=== PATIENT | male | born 1945 | race Caucasian/White ===

== ENCOUNTER 2018-02-02 15:46 | Inpatient (IN) ==
[2018-02-02] MEDS ORDERED: Sod Chloride 0.9% Inj 1,000 ML IV.SIG ONE ×2 (16:54→21:03)
[2018-02-02 17:16] LABS: Baso % (Auto) 0.7 % (0.0-2.0); Eos % (Auto) 0.7 % (0.0-4.0); Hematocrit 38.4 % (39.0-51.0); Lymph # (Auto) 1.5 th/mm3 (1.0-4.8); Lymph % (Auto) 25.6 % (9.0-44.0); Mean Corpuscular HGB Conc 33.8 % (32.0-36.0); Mean Corpuscular Hemoglobin 29.1 pg (27.0-34.0); Mean Corpuscular Volume 86.1 fL (80.0-100.0); Mean Platelet Volume 12.2 fL (7.0-11.0); Mono # (Auto) 0.6 th/mm3 (0.0-0.9); Mono % (Auto) 10.7 % (0.0-8.0); Neut # (Auto) 3.8 th/mm3 (1.8-7.7); Neut % (Auto) 62.3 % (16.0-70.0); Platelet Count 150 th/mm3 (150-450); Red Blood Count 4.46 mil/mm3 (4.50-5.90); Red Cell Distribution Width 15.2 % (11.6-17.2)
[2018-02-02 17:23] LABS: Bacteria,Urine Occasional /hpf; Bilirubin,Urine Negative (Negative); Clarity,Urine Hazy (Clear); Color,Urine Yellow (Yellw/Straw); Glucose,Urine (UA) Negative (Negative); Leukocyte Esterase,Urine Negative (Negative); Mucus,Urine Few /lpf (Occasional); Nitrite,Urine Negative (Negative)
[2018-02-02 17:27] LABS: Activated Partial Thrombo Time 24.3 sec (24.3-30.1); INR 1.1 Ratio; Prothrombin Time 11.1 sec (9.8-11.6)
--- NOTE | 2018-02-02 17:29 | ED ---
HPI General Chief complaint: Recheck/Abnormal Lab/Rx Stated complaint: doc sent/abnl labs Time Seen by Provider: 02/02/18 16:45 Source: patient and RN notes reviewed Mode of arrival: ambulatory Limitations: no limitations History of Present Illness HPI narrative: 72-year-old male presents to the emergency department for evaluation of abnormal labs. Patient states he went to stay a new staff midwife today. He states that the staff midwife sent him for labs and a CT scan of his abdomen/pelvis. He states he was told his creatinine was elevated at 580 had some sort of blockage, but does not know what was blocked. Patient states he had this done at [facility]. It was done today. Patient denies any history of renal issues. He does have history of diabetes, elevated liver enzymes. He has an appointment with a chief telephone operator coming soon. His primary care physician is Dr. Mann. Patient states he has been having intermittent lower abdominal pain. He denies any pain this time. Moderate severity. Location: abdomen Radiation: non-radiation Severity: moderate Quality: aching Pain Consistency: intermittent Relieving factors: none Exacerbating factors: none Associated symptoms: other (Elevated creatinine) Treatments prior to arrival: other (Labs, CT abdomen/pelvis) Related Data Home Medications Medication Instructions Recorded Confirmed aspirin 81 mg PO DAILY 02/02/18 02/02/18 carvedilol [Coreg] 3.125 mg PO BID 02/02/18 02/02/18 metformin 1,000 mg PO BID 02/02/18 02/02/18 rosuvastatin [Crestor] 20 mg PO DAILY 02/02/18 02/02/18 Allergies Allergy/AdvReac Type Severity Reaction Status Date / Time fire ant Allergy Severe Cardiac Verified 02/02/18 19:38 Arrest levofloxacin Allergy Severe Hives Verified 02/02/18 19:38 polymyxin B Allergy Severe red and Verified 02/02/18 19:38 itchy eye trimethoprim Allergy Severe red and Verified 02/02/18 19:38 itchy eye Sulfa (Sulfonamide Allergy Intermediate Hives Verified 02/02/18 19:38 Antibiotics) Mucinex DM Allergy Severe Hives Uncoded 11/24/16 09:25 Review of Systems ROS: all other systems reviewed are negative [facility] Family History Family History Father Heart disease Mother Heart disease Social History Social History Substance History: No History of Abuse Second Hand Smoke Exposure: No Smoking Status: Former smoker Tobacco Type: Cigarettes How Often Do You Have a Drink Containing Alcohol: Never Recent Travel in [facility] within the Last 8 Weeks: No Recent Out of Country Travel within the Last 8 Weeks: No Immunization History Tetanus Immunization: <5 Years Exam Narrative Exam Narrative: GENERAL: Well-nourished, well-developed male patient, afebrile SKIN: Focused skin assessment warm/dry. HEAD: Normocephalic. Atraumatic EYES: Scleral icterus. No injection or drainage. NECK: Supple, trachea midline. No JVD or lymphadenopathy. CARDIOVASCULAR: Regular rate and rhythm without murmurs, gallops, or rubs. RESPIRATORY: Breath sounds equal bilaterally. No accessory muscle use. Lung sounds are clear to auscultation GASTROINTESTINAL: Abdomen soft, non-tender, nondistended. MUSCULOSKELETAL: No cyanosis, or edema. BACK: Nontender without obvious deformity. No CVA tenderness. Course Initial Documented Vital Signs Temperature 97.3 F L 02/02/18 15:52 Pulse Rate 60 02/02/18 15:52 Respiratory Rate 16 02/02/18 15:52 Blood Pressure 114/59 L 02/02/18 15:52 Pulse Oximetry 95 02/02/18 15:52 Last Documented Vital Signs Temperature 97.5 F L 02/03/18 08:00 Pulse Rate 53 L 02/03/18 09:00 Respiratory Rate 17 02/03/18 08:00 Blood Pressure 133/63 02/03/18 08:00 Pulse Oximetry 95 02/03/18 08:00 Medical Decision Making ELIZABETH Attestation ELIZABETH supervised visit: Yes Attestation: I, Dr. Crowley, have reviewed the advance practice practitioner's documentation and am in agreement, met with the patient face to face, made the diagnosis, and the medical decision making was done by me. *My assessment and Findings: Patient is resting comfortably on the stretcher reading a book on his pad. His sclera are anicteric. This patient presents to us because he was called by his staff midwife and told to come here because of an obstruction. He states that he had a CT done by his staff midwife in [place] today and that he was called and told that there was an obstruction in his pancreas or liver. He also reports that his creatinine is 5. His usual creatinine is about 1. Please see Magaly Worrell NP's note for a more detailed H&P, final diagnosis and disposition MDM Narrative Medical decision making narrative: 72-year-old male presents to the emergency department for evaluation of elevated creatinine, abnormality found on CT scan done at [facility] today. He does not have these results with him. I will attempt to obtain his results. If not, he understands CT will have to be repeated. CBC, CMP, lipase, PTT, PT/INR ordered and pending. Patient is given normal saline [address] abdomen/pelvis with PO contrast is ordered as records were not able to be retrieved from [facility]. CBC shows no acute abnormality. CMP shows BUN 64, creatinine 5.05, hyperglycemia 121, bilirubin 2.5, AST 205, ALT 511, alkaline phosphatase 895. Lipase is 711. PTT is 24.3. PT/INR is 11.1/1.1. CT abdomen/pelvis is Negative. Medical Screen Exam Complete: Yes Emergency Medical Condition: Yes Differential Diagnosis Differential Diagnosis: mass versus acute renal failure vs. electrolyte abnormality Medical Records Medical records reviewed: Yes I reviewed the patient's medical records. Lab Data Result diagrams: 02/03/18 06:49 02/03/18 06:49 Lab Results 02/02/18 02/02/18 02/02/18 Range/Units 17:02 17:02 17:02 WBC 6.0 (4.0-11.0) th/mm3 RBC 4.46 L (4.50-5.90) mil/mm3 Hgb 13.0 (13.0-17.0) gm/dL Hct 38.4 L (39.0-51.0) % MCV 86.1 (80.0-100.0) fL MCH 29.1 (27.0-34.0) pg MCHC 33.8 (32.0-36.0) % RDW 15.2 (11.6-17.2) % Plt Count 150 (150-450) th/mm3 MPV 12.2 H (7.0-11.0) fL Neut % (Auto) 62.3 (16.0-70.0) % Lymph % (Auto) 25.6 (9.0-44.0) % [place] % (Auto) 10.7 H (0.0-8.0) % Eos % (Auto) 0.7 (0.0-4.0) % Baso % (Auto) 0.7 (0.0-2.0) % Neut # (Auto) 3.8 (1.8-7.7) th/mm3 Lymph # (Auto) 1.5 (1.0-4.8) th/mm3 [place] # (Auto) 0.6 (0.0-0.9) th/mm3 Eos # (Auto) 0.0 (0.0-0.4) th/mm3 Baso # (Auto) 0.0 (0.0-0.2) th/mm3 WBC Differential . Differential Comment Auto diff final PT 11.1 (9.8-11.6) sec INR 1.1 Ratio APTT 24.3 (24.3-30.1) sec Sodium 135 L (136-145) meq/L Potassium 4.7 (3.5-5.1) meq/L Chloride 99 (98-107) meq/L Carbon Dioxide 22.8 (21.0-32.0) meq/L Anion Gap 13 (5-15) meq/L BUN 64 H (7-18) mg/dL Creatinine 5.05 H (0.60-1.30) mg/dL Estimated GFR 11 L (>89) mL/min POC Glucose (68-110) mg/dl Random Glucose 121 H (74-106) mg/dL Hemoglobin A1c (4.3-6.0) % Calcium 9.1 (8.5-10.1) mg/dL Total Bilirubin 2.5 H (0.2-1.0) mg/dL Direct Bilirubin (0.0-0.2) mg/dL Indirect Bilirubin (0.0-0.8) mg/dL AST 205 H (15-37) U/L ALT 511 H (12-78) U/L Alkaline Phosphatase 895 H (45-117) U/L Ammonia (11-32) mcmol/L Total Creatine Kinase (39-308) U/L Total Protein 7.0 (6.4-8.2) g/dL Albumin 3.3 L (3.4-5.0) g/dL Amylase (25-115) U/L Lipase 711 H (73-393) U/L TSH (0.358-3.740) uIU/mL Free T4 (0.76-1.46) ng/dL Urine Color (Yellw/Straw) Urine Clarity (Clear) Urine pH (5.0-8.5) Ur Specific [place] (1.002-1.035) Urine Protein (Neg-Trace) mg/dL Urine Glucose (UA) (Negative) mg/dL Urine Ketones (Negative) mg/dL Urine Occult Blood (Negative) Urine Nitrate (Negative) Urine Bilirubin (Negative) Urine Urobilinogen (Less than 2) mg/dL Ur Leukocyte Esterase (Negative) Urine RBC (0-3) /hpf Urine WBC (0-5) /hpf Urine Bacteria (None) /hpf Urine Mucus (Occasional) /lpf Micro UA Comment Ur Microscopic Review Urine Culture Comments 02/02/18 02/02/18 02/02/18 Range/Units 17:02 17:02 17:02 WBC (4.0-11.0) th/mm3 RBC (4.50-5.90) mil/mm3 Hgb (13.0-17.0) gm/dL Hct (39.0-51.0) % MCV (80.0-100.0) fL MCH (27.0-34.0) pg MCHC (32.0-36.0) % RDW (11.6-17.2) % Plt Count (150-450) th/mm3 MPV (7.0-11.0) fL Neut % (Auto) (16.0-70.0) % Lymph % (Auto) (9.0-44.0) % [place] % (Auto) (0.0-8.0) % Eos % (Auto) (0.0-4.0) % Baso % (Auto) (0.0-2.0) % Neut # (Auto) (1.8-7.7) th/mm3 Lymph # (Auto) (1.0-4.8) th/mm3 [place] # (Auto) (0.0-0.9) th/mm3 Eos # (Auto) (0.0-0.4) th/mm3 Baso # (Auto) (0.0-0.2) th/mm3 WBC Differential Differential Comment PT (9.8-11.6) sec INR Ratio APTT (24.3-30.1) sec Sodium (136-145) meq/L Potassium (3.5-5.1) meq/L Chloride (98-107) meq/L Carbon Dioxide (21.0-32.0) meq/L Anion Gap (5-15) meq/L BUN (7-18) mg/dL Creatinine (0.60-1.30) mg/dL Estimated GFR (>89) mL/min POC Glucose (68-110) mg/dl Random Glucose (74-106) mg/dL Hemoglobin A1c (4.3-6.0) % Calcium (8.5-10.1) mg/dL Total Bilirubin 2.5 H (0.2-1.0) mg/dL Direct Bilirubin 1.7 H (0.0-0.2) mg/dL Indirect Bilirubin 0.8 (0.0-0.8) mg/dL AST (15-37) U/L ALT (12-78) U/L Alkaline Phosphatase (45-117) U/L Ammonia (11-32) mcmol/L Total Creatine Kinase 39 (39-308) U/L Total Protein (6.4-8.2) g/dL Albumin (3.4-5.0) g/dL Amylase (25-115) U/L Lipase (73-393) U/L TSH (0.358-3.740) uIU/mL Free T4 (0.76-1.46) ng/dL Urine Color Yellow (Yellw/Straw) Urine Clarity Hazy H (Clear) Urine pH 5.0 (5.0-8.5) Ur Specific [place] 1.010 (1.002-1.035) Urine Protein Negative (Neg-Trace) mg/dL Urine Glucose (UA) Negative (Negative) mg/dL Urine Ketones Trace H (Negative) mg/dL Urine Occult Blood Negative (Negative) Urine Nitrate Negative (Negative) Urine Bilirubin Negative (Negative) Urine Urobilinogen 2.0 H (Less than 2) mg/dL Ur Leukocyte Esterase Negative (Negative) Urine RBC 1 (0-3) /hpf Urine WBC 2 (0-5) /hpf Urine Bacteria Occasional H (None) /hpf Urine Mucus Few H (Occasional) /lpf Micro UA Comment Culture not ind Ur Microscopic Review Not Reportable Urine Culture Comments Culture not ind 02/02/18 02/03/18 02/03/18 Range/Units 17:02 06:49 06:49 WBC 5.2 (4.0-11.0) th/mm3 RBC 3.91 L (4.50-5.90) mil/mm3 Hgb 11.2 L (13.0-17.0) gm/dL Hct 33.9 L (39.0-51.0) % MCV 86.7 (80.0-100.0) fL MCH 28.7 (27.0-34.0) pg MCHC 33.1 (32.0-36.0) % RDW 14.8 (11.6-17.2) % Plt Count 130 L (150-450) th/mm3 MPV 12.3 H (7.0-11.0) fL Neut % (Auto) 62.6 (16.0-70.0) % Lymph % (Auto) 23.9 (9.0-44.0) % [place] % (Auto) 12.0 H (0.0-8.0) % Eos % (Auto) 1.0 (0.0-4.0) % Baso % (Auto) 0.5 (0.0-2.0) % Neut # (Auto) 3.2 (1.8-7.7) th/mm3 Lymph # (Auto) 1.2 (1.0-4.8) th/mm3 [place] # (Auto) 0.6 (0.0-0.9) th/mm3 Eos # (Auto) 0.1 (0.0-0.4) th/mm3 Baso # (Auto) 0.0 (0.0-0.2) th/mm3 WBC Differential . Differential Comment Auto diff final PT (9.8-11.6) sec INR Ratio APTT (24.3-30.1) sec Sodium 137 (136-145) meq/L Potassium 4.3 (3.5-5.1) meq/L Chloride 106 (98-107) meq/L Carbon Dioxide 20.3 L (21.0-32.0) meq/L Anion Gap 11 (5-15) meq/L BUN 66 H (7-18) mg/dL Creatinine 4.79 H (0.60-1.30) mg/dL Estimated GFR 12 L (>89) mL/min POC Glucose (68-110) mg/dl Random Glucose 109 H (74-106) mg/dL Hemoglobin A1c 7.6 H (4.3-6.0) % Calcium 7.7 L D (8.5-10.1) mg/dL Total Bilirubin 3.1 H (0.2-1.0) mg/dL Direct Bilirubin (0.0-0.2) mg/dL Indirect Bilirubin (0.0-0.8) mg/dL AST 166 H (15-37) U/L ALT 381 H (12-78) U/L Alkaline Phosphatase 719 H (45-117) U/L Ammonia (11-32) mcmol/L Total Creatine Kinase (39-308) U/L Total Protein 5.7 L D (6.4-8.2) g/dL Albumin 2.7 L D (3.4-5.0) g/dL Amylase (25-115) U/L Lipase (73-393) U/L TSH (0.358-3.740) uIU/mL Free T4 (0.76-1.46) ng/dL Urine Color (Yellw/Straw) Urine Clarity (Clear) Urine pH (5.0-8.5) Ur Specific [place] (1.002-1.035) Urine Protein (Neg-Trace) mg/dL Urine Glucose (UA) (Negative) mg/dL Urine Ketones (Negative) mg/dL Urine Occult Blood (Negative) Urine Nitrate (Negative) Urine Bilirubin (Negative) Urine Urobilinogen (Less than 2) mg/dL Ur Leukocyte Esterase (Negative) Urine RBC (0-3) /hpf Urine WBC (0-5) /hpf Urine Bacteria (None) /hpf Urine Mucus (Occasional) /lpf Micro UA Comment Ur Microscopic Review Urine Culture Comments 02/03/18 02/03/18 02/03/18 Range/Units 06:49 06:49 08:22 WBC (4.0-11.0) th/mm3 RBC (4.50-5.90) mil/mm3 Hgb (13.0-17.0) gm/dL Hct (39.0-51.0) % MCV (80.0-100.0) fL MCH (27.0-34.0) pg MCHC (32.0-36.0) % RDW (11.6-17.2) % Plt Count (150-450) th/mm3 MPV (7.0-11.0) fL Neut % (Auto) (16.0-70.0) % Lymph % (Auto) (9.0-44.0) % [place] % (Auto) (0.0-8.0) % Eos % (Auto) (0.0-4.0) % Baso % (Auto) (0.0-2.0) % Neut # (Auto) (1.8-7.7) th/mm3 Lymph # (Auto) (1.0-4.8) th/mm3 [place] # (Auto) (0.0-0.9) th/mm3 Eos # (Auto) (0.0-0.4) th/mm3 Baso # (Auto) (0.0-0.2) th/mm3 WBC Differential Differential Comment PT (9.8-11.6) sec INR Ratio APTT (24.3-30.1) sec Sodium (136-145) meq/L Potassium (3.5-5.1) meq/L Chloride (98-107) meq/L Carbon Dioxide (21.0-32.0) meq/L Anion Gap (5-15) meq/L BUN (7-18) mg/dL Creatinine (0.60-1.30) mg/dL Estimated GFR (>89) mL/min POC Glucose 104 (68-110) mg/dl Random Glucose (74-106) mg/dL Hemoglobin A1c (4.3-6.0) % Calcium (8.5-10.1) mg/dL Total Bilirubin (0.2-1.0) mg/dL Direct Bilirubin (0.0-0.2) mg/dL Indirect Bilirubin (0.0-0.8) mg/dL AST (15-37) U/L ALT (12-78) U/L Alkaline Phosphatase (45-117) U/L Ammonia (11-32) mcmol/L Total Creatine Kinase (39-308) U/L Total Protein (6.4-8.2) g/dL Albumin (3.4-5.0) g/dL Amylase (25-115) U/L Lipase (73-393) U/L TSH 1.760 (0.358-3.740) uIU/mL Free T4 1.18 (0.76-1.46) ng/dL Urine Color (Yellw/Straw) Urine Clarity (Clear) Urine pH (5.0-8.5) Ur Specific [place] (1.002-1.035) Urine Protein (Neg-Trace) mg/dL Urine Glucose (UA) (Negative) mg/dL Urine Ketones (Negative) mg/dL Urine Occult Blood (Negative) Urine Nitrate (Negative) Urine Bilirubin (Negative) Urine Urobilinogen (Less than 2) mg/dL Ur Leukocyte Esterase (Negative) Urine RBC (0-3) /hpf Urine WBC (0-5) /hpf Urine Bacteria (None) /hpf Urine Mucus (Occasional) /lpf Micro UA Comment Ur Microscopic Review Urine Culture Comments 02/03/18 02/03/18 Range/Units 10:15 10:15 WBC (4.0-11.0) th/mm3 RBC (4.50-5.90) mil/mm3 Hgb (13.0-17.0) gm/dL Hct (39.0-51.0) % MCV (80.0-100.0) fL MCH (27.0-34.0) pg MCHC (32.0-36.0) % RDW (11.6-17.2) % Plt Count (150-450) th/mm3 MPV (7.0-11.0) fL Neut % (Auto) (16.0-70.0) % Lymph % (Auto) (9.0-44.0) % [place] % (Auto) (0.0-8.0) % Eos % (Auto) (0.0-4.0) % Baso % (Auto) (0.0-2.0) % Neut # (Auto) (1.8-7.7) th/mm3 Lymph # (Auto) (1.0-4.8) th/mm3 [place] # (Auto) (0.0-0.9) th/mm3 Eos # (Auto) (0.0-0.4) th/mm3 Baso # (Auto) (0.0-0.2) th/mm3 WBC Differential Differential Comment PT (9.8-11.6) sec INR Ratio APTT (24.3-30.1) sec Sodium (136-145) meq/L Potassium (3.5-5.1) meq/L Chloride (98-107) meq/L Carbon Dioxide (21.0-32.0) meq/L Anion Gap (5-15) meq/L BUN (7-18) mg/dL Creatinine (0.60-1.30) mg/dL Estimated GFR (>89) mL/min POC Glucose (68-110) mg/dl Random Glucose (74-106) mg/dL Hemoglobin A1c (4.3-6.0) % Calcium (8.5-10.1) mg/dL Total Bilirubin (0.2-1.0) mg/dL Direct Bilirubin (0.0-0.2) mg/dL Indirect Bilirubin (0.0-0.8) mg/dL AST (15-37) U/L ALT (12-78) U/L Alkaline Phosphatase (45-117) U/L Ammonia 21 (11-32) mcmol/L Total Creatine Kinase (39-308) U/L Total Protein (6.4-8.2) g/dL Albumin (3.4-5.0) g/dL Amylase 50 (25-115) U/L Lipase 532 H (73-393) U/L TSH (0.358-3.740) uIU/mL Free T4 (0.76-1.46) ng/dL Urine Color (Yellw/Straw) Urine Clarity (Clear) Urine pH (5.0-8.5) Ur Specific [place] (1.002-1.035) Urine Protein (Neg-Trace) mg/dL Urine Glucose (UA) (Negative) mg/dL Urine Ketones (Negative) mg/dL Urine Occult Blood (Negative) Urine Nitrate (Negative) Urine Bilirubin (Negative) Urine Urobilinogen (Less than 2) mg/dL Ur Leukocyte Esterase (Negative) Urine RBC (0-3) /hpf Urine WBC (0-5) /hpf Urine Bacteria (None) /hpf Urine Mucus (Occasional) /lpf Micro UA Comment Ur Microscopic Review Urine Culture Comments Imaging Data Radiologist's impression: Abdomen/Pelvis CT 02/02/18 17:36 CONCLUSION: 1. Negative noncontrast CT abdomen/pelvis. Discharge Plan Discharge Disposition Patient Disposition: 30 Still Patient Discharge Condition Condition: Fair Discharge Order Discharge Orders: AMA Discharge (Routine); Ordered 02/03/18 Ordered By: Andrey Ding Discharge Order (Routine); Ordered 02/03/18 Ordered By: Andrey Ding Discharge Details Anticipated Discharge Date: 02/03/18 Discharge Comment: LEFT AMA Physicians Team ED Provider: Leah Crowley ED Midlevel Provider: Magaly Worrell Primary Care Provider: Parul Mann Attending Provider: Andrey Ding Other Providers: Emeka Vo ; Paulino Schulte Status ED Status: Left Department Discharge Information Discharge Date/Time: 02/02/18 22:53
[2018-02-02 17:52] LABS: Alanine Aminotransferase 511 U/L (12-78); Albumin 3.3 g/dL (3.4-5.0); Anion Gap 13 meq/L (5-15); Aspartate Aminotransferase 205 U/L (15-37); Blood Urea Nitrogen 64 mg/dL (7-18); Calcium 9.1 mg/dL (8.5-10.1); Carbon Dioxide 22.8 meq/L (21.0-32.0); Chloride 99 meq/L (98-107); Glomerular Filtration Rate 11 mL/min (>89); Glucose,Random 121 mg/dL (74-106); Lipase 711 U/L (73-393); Potassium 4.7 meq/L (3.5-5.1); Sodium 135 meq/L (136-145)
[2018-02-02 17:55] LABS: Alkaline Phosphatase 895 U/L (45-117)
[2018-02-02] MEDS ORDERED: Diatrizoate Meglum/Diatrizoate Sod Liq 9 ML UDC ONE (18:38)
[2018-02-02] MEDS ORDERED: Carvedilol 6.25 MG Tablet PO ONE (18:48)
[2018-02-02] MEDS ORDERED: Diatrizoate Meglum/Diatrizoate Sod Liq 9 ML UDC PO ONE (19:04)
[2018-02-02] MEDS ORDERED: Diatrizoate Meglum/Diatrizoate Sod Liq 9 ML UDC PO SCH (19:15)
--- NOTE | 2018-02-02 21:00 | CT ---
EXAM DATE: 02/02/2018 5:41 PM EDT AGE/SEX: 72 years / Male INDICATIONS: Abdomen pain. CLINICAL DATA: This is the patient's initial encounter. Patient reports that signs and symptoms have been present for 1 day and indicates a pain score of 4/10. MEDICAL/SURGICAL HISTORY: None. None. RADIATION DOSE: 15.38 CTDI (mGy) COMPARISON: No prior exams available for comparison. TECHNIQUE: Multiple contiguous axial images were obtained through the abdomen. Images were obtained using multiple row detector helical technique. Using automated exposure control and adjustment of the mA and/or kV according to patient size, radiation dose was kept as low as reasonably achievable to o btain optimal diagnostic quality images. DICOM format image data is available electronically for rev iew and comparison. FINDINGS: Lower Lungs: The visualized lower lungs are clear. Liver: The liver has a homogeneous density without space-occupying lesion for noncontrast technique. There is no dilation of the biliary tree. No calcified gallstones. Spleen: Homogeneous density without enlargement. Pancreas: Unremarkable without mass or calcification. Kidneys: Normal in size and shape. No evidence of mass or hydronephrosis. No calcified stones in the collecting system or ureters. Adrenal Glands: Unremarkable. Aorta: The aorta and proximal iliac vessels are grossly unremarkable without aneurysmal dilation. Bowel/Mesentery: No dilated loops of small or large bowel. Oral contrast passes through to the rectu m. No evidence of free fluid.. Abdominal Wall: Intact. Retroperitoneum: No evidence of adenopathy in the retrocrural, para-aortic, or deep pelvic regions. Bladder: Contours are smooth. Reproductive Organs: No abnormal masses or calcifications seen. Inguinal: The inguinal region is unremarkable without evidence of adenopathy. Bony Structures: Unremarkable. CONCLUSION: 1. Negative noncontrast CT abdomen/pelvis. Electronically signed by: Teddy Hoang MD 02/02/2018 8:59 PM EDT
[2018-02-02] MEDS ORDERED: Bisacodyl 10 MG Supp RECTAL PRN (21:17)
[2018-02-02] MEDS ORDERED: Sod Chloride 0.9% Inj 1,000 ML IV.CONT SCH (21:30)
[2018-02-02] MEDS ORDERED: Dextrose 50% in Water 50 ML Vial IV.PUSH PRN (23:36)
--- NOTE | 2018-02-02 23:56 | P.HPIM ---
History of Present Illness Primary Care Physician: Parul Mann MD History of Present Illness: 72-year-old male with a history of CAD with history of stenting, diabetes starting on metformin started about 1 month ago, a one-month history of intentional 30 pound weight loss, together with crampy intermittent lower abdominal pain, nausea and decreased appetite. Patient went to see an author's agent injectable due to elevated LFTs, had labs and imaging performed today; patient was called by author's agent this afternoon to inform him that creatinine above 5.0 on labs drawn this am, as well as a GI mass found on imaging (patient recalls being told this was a pancreatic mass). Patient does note dark urine over the past few days. Denies any chest pain, shortness of breath. He has had low blood pressures with systolics in the 80s, and had his lisinopril discontinued on Wednesday. Inpatient Certification: I certify that the inpatient services were ordered in accordance with Medicare regulations governing the order. This includes certification that hospital inpatient services are reasonable and necessary and in the case of services not specified as inpatient-only under 42 CFR 419.22(n), that they are appropriately provided as inpatient services in accordance to with the 2-midnight benchmark under 43 CFR 412.3(e) Estimated Total Length of Stay (Days): 2 Plans for Post Hospital Care: Home Review of Systems All other systems reviewed negative except as stated in HPI PMFSH - History History Provided By: Patient - Medical History Medical History: Medical History (Last Reviewed 02/02/18 @ 23:33 by Angie Duke RN) Diabetes Elevated liver enzymes Glaucoma Myocardial infarct - Surgical History Surgical History: Surgical History (Last Reviewed 02/02/18 @ 23:33 by Angie Duke RN) H/O arthroscopy of left knee H/O right knee surgery History of heart artery stent - Family History Family History: Family History (Last Updated 02/02/18 @ 23:57 by Carlos Garland MD) Father Heart disease Mother Heart disease - Tobacco History Tobacco Use In Past 30 Days: No Smoking Status: Former smoker Tobacco Type: Cigarettes - Alcohol History How Often Do You Have a Drink Containing Alcohol: Never - Travel History Recent Travel in the [place] Within the Last 8 Weeks: No Recent Travel Out of the Country Within the Last 8 Weeks: No - Immunization History Tetanus Immunization: <5 Years Medications and Allergies Active Medications: Active Medications Al Hydroxide/Mg Hydroxide (Milk Of Magnesia Liq) 30 ml PO Q12H PRN PRN Reason: Mild Constipation Aspirin (Aspirin Chew) 81 mg PO DAILY TRE Bisacodyl (Dulcolax Supp) 10 mg RECTAL DAILY PRN PRN Reason: SEVERE CONSITIPATION Carvedilol (Coreg) 6.25 mg PO BID TRE Dextrose (D50w Vial) 50 ml IV.PUSH UNSCH PRN PRN Reason: PER HYPOGLYCEMIA PROTOCOL Diatrizoate Meglum/Diatrizoate Sod ( Gastroview Liq) 18 ml PO ONCE TRE Glucagon (Glucagon Inj) 1 mg OTHER PRN PRN PRN Reason: for Hypoglycemia Protocol Sodium Chloride (Ns Inj) 1,000 mls @ 100 mls/hr IV.CONT .Q10H TRE Insulin Aspart (Novolog Insulin Correctional Sugar Inj) 0 unit SQ ACHS TRE; Protocol Lactulose (Lactulose Liq) 30 ml PO DAILY PRN PRN Reason: SEVERE CONSITIPATION Sennosides (Senokot) 17.2 mg PO Q12H PRN PRN Reason: Moderate Constipation Sodium Chloride (Ns Flush) 2 ml IV.FLUSH PRN PRN PRN Reason: FLUSH AFTER USING IV ACCESS Allergies Allergy/AdvReac Type Severity Reaction Status Date / Time fire ant Allergy Severe Cardiac Verified 02/02/18 19:38 Arrest levofloxacin Allergy Severe Hives Verified 02/02/18 19:38 polymyxin B Allergy Severe red and Verified 02/02/18 19:38 itchy eye trimethoprim Allergy Severe red and Verified 02/02/18 19:38 itchy eye Sulfa (Sulfonamide Allergy Intermediate Hives Verified 02/02/18 19:38 Antibiotics) Mucinex DM Allergy Severe Hives Uncoded 11/24/16 09:25 Home Medications Medication Instructions Recorded Confirmed Type aspirin 81 mg PO DAILY 02/02/18 02/02/18 History carvedilol [Coreg] 6.25 mg PO BID 02/02/18 02/02/18 History metformin 1,000 mg PO BID 02/02/18 02/02/18 History rosuvastatin [Crestor] 20 mg PO DAILY 02/02/18 02/02/18 History Exam Vital signs: Vital Signs 02/02/18 15:52 02/02/18 17:21 02/02/18 20:26 Temperature 97.3 F L Pulse Rate 60 64 78 Respiratory Rate 16 18 Blood Pressure 114/59 L 151/70 H Pulse Oximetry 95 98 Intake & Output 02/02/18 02/02/18 02/03/18 06:59 18:59 06:59 Intake Total 1000 / 1000 Balance 1000 / 1000 Weight 89.811 kg Intake: IV 1000 / 1000 NS Inj 1,000 ML @ Wide Open IV. 1000 / 1000 SIG BOLUS ONE Rx#:[id number] Narrative: GENERAL: Patient sitting up in bed. Appears comfortable. Alert and oriented x3. SKIN: Warm and dry. HEAD: Atraumatic. Normocephalic. EYES: Pupils equal and round. No scleral icterus. No injection or drainage. ENT: No nasal bleeding or discharge. Mucous membranes pink and moist. NECK: Trachea midline. No JVD. CARDIOVASCULAR: Regular rate and rhythm. RESPIRATORY: No accessory muscle use. Clear to auscultation. Breath sounds equal bilaterally. GASTROINTESTINAL: Abdomen soft, non-tender, nondistended. Hepatic and splenic margins not palpable. MUSCULOSKELETAL: Extremities without clubbing, cyanosis, or edema. No obvious deformities. NEUROLOGICAL: Awake and alert. No obvious cranial nerve deficits. Motor grossly within normal limits. Five out of 5 muscle strength in the arms and legs. Normal speech. PSYCHIATRIC: Appropriate mood and affect; insight and judgment normal. Results - Labs CBC & Chem 7: 02/02/18 17:02 02/02/18 17:02 Labs: Short CBC 02/02/18 Range/Units 17:02 WBC 6.0 (4.0-11.0) th/mm3 Hgb 13.0 (13.0-17.0) gm/dL Hct 38.4 L (39.0-51.0) % Plt Count 150 (150-450) th/mm3 [facility] 02/02/18 17:02 Sodium 135 L Potassium 4.7 Chloride 99 Carbon Dioxide 22.8 BUN 64 H Creatinine 5.05 H Calcium 9.1 Cardiac Enzymes 02/02/18 Range/Units 17:02 Total Creatine Kinase 39 (39-308) U/L Liver Function 02/02/18 Range/Units 17:02 Total Bilirubin 2.5 H (0.2-1.0) mg/dL AST 205 H (15-37) U/L ALT 511 H (12-78) U/L Alkaline Phosphatase 895 H (45-117) U/L Albumin 3.3 L (3.4-5.0) g/dL Urine 02/02/18 Range/Units 17:02 Urine Color Yellow (Yellw/Straw) Urine Clarity Hazy H (Clear) Urine pH 5.0 (5.0-8.5) Ur Specific Lynn 1.010 (1.002-1.035) Urine Protein Negative (Neg-Trace) mg/dL Urine Glucose (UA) Negative (Negative) mg/dL - Imaging Impressions Abdomen/Pelvis CT 02/02/18 17:36 CONCLUSION: 1. Negative noncontrast CT abdomen/pelvis. Caprini VTE Risk Assessment Caprini VTE Risk Assessment: Moderate/High Risk (score >= 2) Caprini Risk Assessment Model: Point Value = 1 Point Value = 2 Point Value = 3 Point Value = 5 Age 41-60 Minor surgery BMI > 25 kg/m2 Swollen legs Varicose veins or History of unexplained or recurrent spontaneous Oral contraceptives or hormone replacement Sepsis (< 1 month) Serious lung disease, including pneumonia (< 1 month) Abnormal pulmonary function Acute myocardial infarction Congestive heart failure (< 1 month) History of inflammatory bowel disease Medical patient at bed rest Age 61-74 Arthroscopic surgery Major open surgery (> 45 min) Laparoscopic surgery (> 45 min) Malignancy Confined to bed (> 72 hours) Immobilizing plaster cast Central venous access Age >= 75 History of VTE Family history of VTE Factor V Leiden Prothrombin [id number] Lupus anticoagulant Anticardiolipin antibodies Elevated serum homocysteine Heparin-induced thrombocytopenia Other congenital or acquired thrombophilia Stroke (< 1 month) Elective arthroplasty Hip, pelvis, or leg fracture Acute spinal cord injury (< 1 month) Prophylaxis Regimen: Total Risk Factor Score Risk Level Prophylaxis Regimen 0-1 Low Early ambulation 2 Moderate Order ONE of the following: *Sequential Compression Device (SCD) *Heparin 5000 units SQ BID 3-4 Higher Order ONE of the following medications: *Heparin 5000 units SQ TID *Enoxaparin/Lovenox 40 mg SQ daily (WT < 150 kg, CrCl > 30 mL/min) *Enoxaparin/Lovenox 30 mg SQ daily (WT < 150 kg, CrCl > 10-29 mL/min) *Enoxaparin/Lovenox 30 mg SQ BID (WT < 150 kg, CrCl > 30 mL/min) AND/OR *Sequential Compression Device (SCD) 5 or more Highest Order ONE of the following medications: *Heparin 5000 units SQ TID (Preferred with Epidurals) *Enoxaparin/Lovenox 40 mg SQ daily (WT < 150 kg, CrCl > 30 mL/min) *Enoxaparin/Lovenox 30 mg SQ daily (WT < 150 kg, CrCl > 10-29 mL/min) *Enoxaparin/Lovenox 30 mg SQ BID (WT < 150 kg, CrCl > 30 mL/min) AND *Sequential Compression Device (SCD) Assessment and Plan - Plan //Kidney injury creatinine of 5 from presumably normal baseline Likely secondary to significant dietary changes in conjunction with starting metformin, as well as being on lisinopril We will hold lisinopril. Hold metformin Aggressive IV fluid replacement. No signs of obstruction on CT Consult nephrology. Follow-up renal function //Suspected GI malignancy/mass //Transaminitis //Hyperbilirubinemia. = CT abdomen with no acute findings. Lipase elevated 711, however does not appear to be acute pancreatitis. Unfortunately we have been unable to get outside records. It sounds as if patient had an MRI. We will try in the morning. Appreciate nursing home administrator GI has been consulted. //Diabetes mellitus.dm diet. iss. = There is a possibility that patient has a pancreatic malignancy causing a type I diabetic picture. Only trace ketones in urine and no gap however. Will follow labs. //History of hypertension //History of coronary artery disease Continue beta-sindhu Discussed Condition With: Patient, nurse, ED physician, at bedside
[2018-02-03] MEDS ORDERED: HYDROmorphone PF Inj 0.5 MG/0.5 ML Syringe IV.PUSH ONE (03:41)
[2018-02-03] MEDS ORDERED: HYDROmorphone PF Inj 2 MG/ML Vial IV.PUSH ONE (03:45)
[2018-02-03 07:07] LABS: Baso % (Auto) 0.5 % (0.0-2.0); Eos # (Auto) 0.1 th/mm3 (0.0-0.4); Hematocrit 33.9 % (39.0-51.0); Hemoglobin 11.2 gm/dL (13.0-17.0); Lymph # (Auto) 1.2 th/mm3 (1.0-4.8); Lymph % (Auto) 23.9 % (9.0-44.0); Mean Corpuscular HGB Conc 33.1 % (32.0-36.0); Mean Corpuscular Hemoglobin 28.7 pg (27.0-34.0); Mean Corpuscular Volume 86.7 fL (80.0-100.0); Mean Platelet Volume 12.3 fL (7.0-11.0); Mono # (Auto) 0.6 th/mm3 (0.0-0.9); Neut # (Auto) 3.2 th/mm3 (1.8-7.7); Neut % (Auto) 62.6 % (16.0-70.0); Platelet Count 130 th/mm3 (150-450); Red Blood Count 3.91 mil/mm3 (4.50-5.90); Red Cell Distribution Width 14.8 % (11.6-17.2); White Blood Count 5.2 th/mm3 (4.0-11.0)
[2018-02-03 07:35] LABS: Albumin 2.7 g/dL (3.4-5.0); Anion Gap 11 meq/L (5-15); Blood Urea Nitrogen 66 mg/dL (7-18); Calcium 7.7 mg/dL (8.5-10.1); Carbon Dioxide 20.3 meq/L (21.0-32.0); Chloride 106 meq/L (98-107); Glomerular Filtration Rate 12 mL/min (>89); Glucose,Random 109 mg/dL (74-106); Potassium 4.3 meq/L (3.5-5.1); Sodium 137 meq/L (136-145)
[2018-02-03 07:36] LABS: Alanine Aminotransferase 381 U/L (12-78); Aspartate Aminotransferase 166 U/L (15-37)
[2018-02-03 07:39] LABS: Alkaline Phosphatase 719 U/L (45-117); Total Protein 5.7 g/dL (6.4-8.2)
[2018-02-03] MEDS ORDERED: Insulin NovoLOG Aspart Correctional Sugar Inj SQ SCH (08:00)
[2018-02-03 08:29] VITALS: BP 133/63; RESP 17; TEMP 97.5; O2SAT 95
[2018-02-03] MEDS ORDERED: Carvedilol 6.25 MG Tablet PO SCH (09:00)
--- NOTE | 2018-02-03 10:26 | P.CONGI ---
History of Present Illness Consult date: 02/03/18 Consult reason: CT findings, elevated LFTs Chief complaint: Acute Renal Failure History of Present Illness: This is a 72 yo M with PMH significant for recent diagnosis of DM that he is currently being followed by an expediter service order at [facility] in [place]. Pt reports he had routine labs done yesterday and on his way home from [place] was called by the office and told that he had to go to the hospital because his labs revealed a Creatinine of 5. Our service has been consulted to evaluate pt for elevated LFTs and outpatient CT findings. Pt is complaining of some intermittent nausea that he states has been present since being started on Metformin but that it has been improving recently. Also states some diarrhea yesterday but overall having normal BMs. Denies any abdominal pain. He reports that he has been losing weight unintentionally for about a year but that since November the weight loss has significantly increased. He reports a poor appetite. Pts GI Dr. is Dr. Melton. Last EGD and colonoscopy about 10 years ago and states both exams were normal. Did do a recent Cologuard test which was negative. Pt quit drinking alcohol in December, states prior to that was only a social drinker. Quit smoking in 1981. Denies any family history significant for cancer. <Madeline Chavez - Last Filed: 02/03/18 10:07> Review of Systems Constitutional: Reports weight loss Gastrointestinal: Reports loose stools, Reports nausea, Denies abdominal pain, Denies black, tarry stools, Denies bright, red blood in stools, Denies vomiting <Madeline Chavez - Last Filed: 02/03/18 10:07> [facility] - History History Provided By: Patient - Medical History Medical History: Medical History (Last Reviewed 02/02/18 @ 23:33 by Angie Duke RN) Diabetes Elevated liver enzymes Glaucoma Myocardial infarct - Surgical History Surgical History: Surgical History (Last Reviewed 02/02/18 @ 23:33 by Angie Duke RN) H/O arthroscopy of left knee H/O right knee surgery History of heart artery stent - Family History Family History: Family History (Last Updated 02/02/18 @ 23:57 by Carlos Garland MD) Father Heart disease Mother Heart disease - Tobacco History Second Hand Smoke Exposure: No Tobacco Use In Past 30 Days: No Smoking Status: Former smoker Tobacco Type: Cigarettes - Alcohol History How Often Do You Have a Drink Containing Alcohol: Never - Substance Use History Substance History: No History of Abuse - Travel History Recent Travel in the [place] Within the Last 8 Weeks: No Recent Travel Out of the Country Within the Last 8 Weeks: No - Immunization History Tetanus Immunization: <5 Years Hx Influenza Vaccine This Season: Yes <Madeline Chavez - Last Filed: 02/03/18 10:07> - Medical History Medical History: Medical History (Last Reviewed 02/02/18 @ 23:33 by Angie Duke, LIVAN) Diabetes Elevated liver enzymes Glaucoma Myocardial infarct - Surgical History Surgical History: Surgical History (Last Reviewed 02/02/18 @ 23:33 by Angie Duke RN) H/O arthroscopy of left knee H/O right knee surgery History of heart artery stent - Family History Family History: Family History (Last Updated 02/02/18 @ 23:57 by Carlos Garland MD) Father Heart disease Mother Heart disease <Paulino Schulte - Last Filed: 02/03/18 15:15> Medications and Allergies Active Medications: Active Medications Al Hydroxide/Mg Hydroxide (Milk Of Magnesia Liq) 30 ml PO Q12H PRN PRN Reason: Mild Constipation Aspirin (Aspirin Chew) 81 mg PO DAILY [facility] Last Admin: 02/03/18 08:14 Dose: 81 mg Bisacodyl (Dulcolax Supp) 10 mg RECTAL DAILY PRN PRN Reason: SEVERE CONSITIPATION Carvedilol (Coreg) 6.25 mg PO BID [facility] Last Admin: 02/03/18 08:15 Dose: 6.25 mg Dextrose (D50w Vial) 50 ml IV.PUSH UNSCH PRN PRN Reason: PER HYPOGLYCEMIA PROTOCOL Diatrizoate Meglum/Diatrizoate Sod ( Gastroview Liq) 18 ml PO ONCE TRE Glucagon (Glucagon Inj) 1 mg OTHER PRN PRN PRN Reason: for Hypoglycemia Protocol Sodium Chloride (Ns Inj) 1,000 mls @ 100 mls/hr IV.CONT .Q10H [facility] Last Admin: 02/02/18 23:52 Dose: 100 mls/hr Insulin Aspart (Novolog Insulin Correctional Sugar Inj) 0 unit SQ ACHS TRE; Protocol Last Admin: 02/03/18 09:44 Dose: Not Given Lactulose (Lactulose Liq) 30 ml PO DAILY PRN PRN Reason: SEVERE CONSITIPATION Sennosides (Senokot) 17.2 mg PO Q12H PRN PRN Reason: Moderate Constipation Sodium Chloride (Ns Flush) 2 ml IV.FLUSH PRN PRN PRN Reason: FLUSH AFTER USING IV ACCESS <Madeline Chavez - Last Filed: 02/03/18 10:07> Active Medications: Active Medications Al Hydroxide/Mg Hydroxide (Milk Of Magnesia Liq) 30 ml PO Q12H PRN PRN Reason: Mild Constipation Aspirin (Aspirin Chew) 81 mg PO DAILY [facility] Last Admin: 02/03/18 08:14 Dose: 81 mg Bisacodyl (Dulcolax Supp) 10 mg RECTAL DAILY PRN PRN Reason: SEVERE CONSITIPATION Carvedilol (Coreg) 6.25 mg PO BID [facility] Last Admin: 02/03/18 08:15 Dose: 6.25 mg Dextrose (D50w Vial) 50 ml IV.PUSH UNSCH PRN PRN Reason: PER HYPOGLYCEMIA PROTOCOL Diatrizoate Meglum/Diatrizoate Sod ( Gastroview Liq) 18 ml PO ONCE TRE Glucagon (Glucagon Inj) 1 mg OTHER PRN PRN PRN Reason: for Hypoglycemia Protocol Sodium Chloride (Ns Inj) 1,000 mls @ 100 mls/hr IV.CONT .Q10H [facility] Last Admin: 02/02/18 23:52 Dose: 100 mls/hr Insulin Aspart (Novolog Insulin Correctional Sugar Inj) 0 unit SQ ACHS [facility]; Protocol Last Admin: 02/03/18 09:44 Dose: Not Given Lactulose (Lactulose Liq) 30 ml PO DAILY PRN PRN Reason: SEVERE CONSITIPATION Sennosides (Senokot) 17.2 mg PO Q12H PRN PRN Reason: Moderate Constipation Sodium Chloride (Ns Flush) 2 ml IV.FLUSH PRN PRN PRN Reason: FLUSH AFTER USING IV ACCESS <Paulino Schulte - Last Filed: 02/03/18 15:15> Allergies Allergy/AdvReac Type Severity Reaction Status Date / Time fire ant Allergy Severe Cardiac Verified 02/02/18 19:38 Arrest levofloxacin Allergy Severe Hives Verified 02/02/18 19:38 polymyxin B Allergy Severe red and Verified 02/02/18 19:38 itchy eye trimethoprim Allergy Severe red and Verified 02/02/18 19:38 itchy eye Sulfa (Sulfonamide Allergy Intermediate Hives Verified 02/02/18 19:38 Antibiotics) Mucinex DM Allergy Severe Hives Uncoded 11/24/16 09:25 Home Medications Medication Instructions Recorded Confirmed Type aspirin 81 mg PO DAILY 02/02/18 02/02/18 History carvedilol [Coreg] 3.125 mg PO BID 02/02/18 02/02/18 History metformin 1,000 mg PO BID 02/02/18 02/02/18 History rosuvastatin [Crestor] 20 mg PO DAILY 02/02/18 02/02/18 History Exam Vital signs: Vital Signs 02/02/18 15:52 02/02/18 17:21 02/02/18 20:26 Temperature 97.3 F L Pulse Rate 60 64 78 Respiratory Rate 16 18 Blood Pressure 114/59 L 151/70 H Pulse Oximetry 95 98 02/03/18 00:00 02/03/18 00:07 02/03/18 03:46 Temperature 98.0 F Pulse Rate 48 L 57 L 52 L Respiratory Rate 18 Blood Pressure 122/61 Pulse Oximetry 98 02/03/18 04:00 02/03/18 08:00 Temperature 98.0 F 97.5 F L Pulse Rate 68 56 L Respiratory Rate 18 17 Blood Pressure 99/54 L 133/63 Pulse Oximetry 96 95 Intake & Output 02/02/18 02/03/18 02/03/18 18:59 06:59 18:59 Intake Total 1000 / 1000 1000 / 1000 Balance 1000 / 1000 1000 / 1000 Weight 89.811 kg 89.6 kg Intake: IV 1000 / 1000 1000 / 1000 NS Inj 1,000 ML @ Wide Open IV. 1000 / 1000 1000 / 1000 SIG BOLUS ONE Rx#:[id number] Other: Date of Last Bowel Movement 02/02/18 Weight On Admission 89.8 kg - Constitutional no acute distress - Routine HEENT Exam Head: Present: normocephalic, atraumatic - Routine Respiratory Exam Absent: accessory muscle use - Routine Abdominal Exam Present: soft, normoactive bowel sounds. Absent: tenderness, distended - Routine Skin Exam Present: dry, warm - Routine Neurological Exam Present: alert, oriented X3 <Madeline Chavez - Last Filed: 02/03/18 10:07> Vital signs: Vital Signs 02/02/18 15:52 02/02/18 17:21 02/02/18 20:26 Temperature 97.3 F L Pulse Rate 60 64 78 Respiratory Rate 16 18 Blood Pressure 114/59 L 151/70 H Pulse Oximetry 95 98 02/03/18 00:00 02/03/18 00:07 02/03/18 03:46 Temperature 98.0 F Pulse Rate 48 L 57 L 52 L Respiratory Rate 18 Blood Pressure 122/61 Pulse Oximetry 98 02/03/18 04:00 02/03/18 08:00 02/03/18 09:00 Temperature 98.0 F 97.5 F L Pulse Rate 68 56 L 53 L Respiratory Rate 18 17 Blood Pressure 99/54 L 133/63 Pulse Oximetry 96 95 Intake & Output 02/02/18 02/03/18 02/03/18 18:59 06:59 18:59 Intake Total 1000 / 1000 1000 / 1000 Balance 1000 / 1000 1000 / 1000 Weight 89.811 kg 89.6 kg Intake: IV 1000 / 1000 1000 / 1000 NS Inj 1,000 ML @ Wide Open IV. 1000 / 1000 1000 / 1000 SIG BOLUS ONE Rx#:[id number] Other: Date of Last Bowel Movement 02/02/18 Weight On Admission 89.8 kg <Paulino Schulte - Last Filed: 02/03/18 15:15> Results - Labs CBC & Chem 7: 02/03/18 06:49 02/03/18 06:49 Labs: Laboratory Results - last 24 hr 02/02/18 02/02/18 02/02/18 17:02 17:02 17:02 WBC 6.0 RBC 4.46 L Hgb 13.0 Hct 38.4 L MCV 86.1 MCH 29.1 MCHC 33.8 RDW 15.2 Plt Count 150 MPV 12.2 H Neut % (Auto) 62.3 Lymph % (Auto) 25.6 [place] % (Auto) 10.7 H Eos % (Auto) 0.7 Baso % (Auto) 0.7 Neut # (Auto) 3.8 Lymph # (Auto) 1.5 [place] # (Auto) 0.6 Eos # (Auto) 0.0 Baso # (Auto) 0.0 WBC Differential . Differential Comment Auto diff final PT 11.1 INR 1.1 APTT 24.3 Sodium 135 L Potassium 4.7 Chloride 99 Carbon Dioxide 22.8 Anion Gap 13 BUN 64 H Creatinine 5.05 H Estimated GFR 11 L POC Glucose Random Glucose 121 H Calcium 9.1 Total Bilirubin 2.5 H Direct Bilirubin Indirect Bilirubin AST 205 H ALT 511 H Alkaline Phosphatase 895 H Total Creatine Kinase Total Protein 7.0 Albumin 3.3 L Lipase 711 H Free T4 Urine Color Urine Clarity Urine pH Ur Specific [place] Urine Protein Urine Glucose (UA) Urine Ketones Urine Occult Blood Urine Nitrate Urine Bilirubin Urine Urobilinogen Ur Leukocyte Esterase Urine RBC Urine WBC Urine Bacteria Urine Mucus Micro UA Comment Ur Microscopic Review Urine Culture Comments 02/02/18 02/02/18 02/02/18 17:02 17:02 17:02 WBC RBC Hgb Hct MCV MCH MCHC RDW Plt Count MPV Neut % (Auto) Lymph % (Auto) [place] % (Auto) Eos % (Auto) Baso % (Auto) Neut # (Auto) Lymph # (Auto) [place] # (Auto) Eos # (Auto) Baso # (Auto) WBC Differential Differential Comment PT INR APTT Sodium Potassium Chloride Carbon Dioxide Anion Gap BUN Creatinine Estimated GFR POC Glucose Random Glucose Calcium Total Bilirubin 2.5 H Direct Bilirubin 1.7 H Indirect Bilirubin 0.8 AST ALT Alkaline Phosphatase Total Creatine Kinase 39 Total Protein Albumin Lipase Free T4 Urine Color Yellow Urine Clarity Hazy H Urine pH 5.0 Ur Specific [place] 1.010 Urine Protein Negative Urine Glucose (UA) Negative Urine Ketones Trace H Urine Occult Blood Negative Urine Nitrate Negative Urine Bilirubin Negative Urine Urobilinogen 2.0 H Ur Leukocyte Esterase Negative Urine RBC 1 Urine WBC 2 Urine Bacteria Occasional H Urine Mucus Few H Micro UA Comment Culture not ind Ur Microscopic Review Not Reportable Urine Culture Comments Culture not ind 02/03/18 02/03/18 02/03/18 06:49 06:49 06:49 WBC 5.2 RBC 3.91 L Hgb 11.2 L Hct 33.9 L MCV 86.7 MCH 28.7 MCHC 33.1 RDW 14.8 Plt Count 130 L MPV 12.3 H Neut % (Auto) 62.6 Lymph % (Auto) 23.9 [place] % (Auto) 12.0 H Eos % (Auto) 1.0 Baso % (Auto) 0.5 Neut # (Auto) 3.2 Lymph # (Auto) 1.2 [place] # (Auto) 0.6 Eos # (Auto) 0.1 Baso # (Auto) 0.0 WBC Differential . Differential Comment Auto diff final PT INR APTT Sodium 137 Potassium 4.3 Chloride 106 Carbon Dioxide 20.3 L Anion Gap 11 BUN 66 H Creatinine 4.79 H Estimated GFR 12 L POC Glucose Random Glucose 109 H Calcium 7.7 L D Total Bilirubin 3.1 H Direct Bilirubin Indirect Bilirubin AST 166 H ALT 381 H Alkaline Phosphatase 719 H Total Creatine Kinase Total Protein 5.7 L D Albumin 2.7 L D Lipase Free T4 1.18 Urine Color Urine Clarity Urine pH Ur Specific [place] Urine Protein Urine Glucose (UA) Urine Ketones Urine Occult Blood Urine Nitrate Urine Bilirubin Urine Urobilinogen Ur Leukocyte Esterase Urine RBC Urine WBC Urine Bacteria Urine Mucus Micro UA Comment Ur Microscopic Review Urine Culture Comments 02/03/18 08:22 WBC RBC Hgb Hct MCV MCH MCHC RDW Plt Count MPV Neut % (Auto) Lymph % (Auto) [place] % (Auto) Eos % (Auto) Baso % (Auto) Neut # (Auto) Lymph # (Auto) [place] # (Auto) Eos # (Auto) Baso # (Auto) WBC Differential Differential Comment PT INR APTT Sodium Potassium Chloride Carbon Dioxide Anion Gap BUN Creatinine Estimated GFR POC Glucose 104 Random Glucose Calcium Total Bilirubin Direct Bilirubin Indirect Bilirubin AST ALT Alkaline Phosphatase Total Creatine Kinase Total Protein Albumin Lipase Free T4 Urine Color Urine Clarity Urine pH Ur Specific [place] Urine Protein Urine Glucose (UA) Urine Ketones Urine Occult Blood Urine Nitrate Urine Bilirubin Urine Urobilinogen Ur Leukocyte Esterase Urine RBC Urine WBC Urine Bacteria Urine Mucus Micro UA Comment Ur Microscopic Review Urine Culture Comments - Imaging Impressions Abdomen/Pelvis CT 02/02/18 17:36 CONCLUSION: 1. Negative noncontrast CT abdomen/pelvis. <Madeline Chavez - Last Filed: 02/03/18 10:07> - Labs CBC & Chem 7: 02/03/18 06:49 02/03/18 06:49 Labs: Laboratory Results - last 24 hr 02/02/18 02/02/18 02/02/18 17:02 17:02 17:02 WBC 6.0 RBC 4.46 L Hgb 13.0 Hct 38.4 L MCV 86.1 MCH 29.1 MCHC 33.8 RDW 15.2 Plt Count 150 MPV 12.2 H Neut % (Auto) 62.3 Lymph % (Auto) 25.6 [place] % (Auto) 10.7 H Eos % (Auto) 0.7 Baso % (Auto) 0.7 Neut # (Auto) 3.8 Lymph # (Auto) 1.5 [place] # (Auto) 0.6 Eos # (Auto) 0.0 Baso # (Auto) 0.0 WBC Differential . Differential Comment Auto diff final PT 11.1 INR 1.1 APTT 24.3 Sodium 135 L Potassium 4.7 Chloride 99 Carbon Dioxide 22.8 Anion Gap 13 BUN 64 H Creatinine 5.05 H Estimated GFR 11 L POC Glucose Random Glucose 121 H Calcium 9.1 Total Bilirubin 2.5 H Direct Bilirubin Indirect Bilirubin AST 205 H ALT 511 H Alkaline Phosphatase 895 H Ammonia Total Creatine Kinase Total Protein 7.0 Albumin 3.3 L Amylase Lipase 711 H TSH Free T4 Urine Color Urine Clarity Urine pH Ur Specific [place] Urine Protein Urine Glucose (UA) Urine Ketones Urine Occult Blood Urine Nitrate Urine Bilirubin Urine Urobilinogen Ur Leukocyte Esterase Urine RBC Urine WBC Urine Bacteria Urine Mucus Micro UA Comment Ur Microscopic Review Urine Culture Comments 02/02/18 02/02/18 02/02/18 17:02 17:02 17:02 WBC RBC Hgb Hct MCV MCH MCHC RDW Plt Count MPV Neut % (Auto) Lymph % (Auto) [place] % (Auto) Eos % (Auto) Baso % (Auto) Neut # (Auto) Lymph # (Auto) [place] # (Auto) Eos # (Auto) Baso # (Auto) WBC Differential Differential Comment PT INR APTT Sodium Potassium Chloride Carbon Dioxide Anion Gap BUN Creatinine Estimated GFR POC Glucose Random Glucose Calcium Total Bilirubin 2.5 H Direct Bilirubin 1.7 H Indirect Bilirubin 0.8 AST ALT Alkaline Phosphatase Ammonia Total Creatine Kinase 39 Total Protein Albumin Amylase Lipase TSH Free T4 Urine Color Yellow Urine Clarity Hazy H Urine pH 5.0 Ur Specific [place] 1.010 Urine Protein Negative Urine Glucose (UA) Negative Urine Ketones Trace H Urine Occult Blood Negative Urine Nitrate Negative Urine Bilirubin Negative Urine Urobilinogen 2.0 H Ur Leukocyte Esterase Negative Urine RBC 1 Urine WBC 2 Urine Bacteria Occasional H Urine Mucus Few H Micro UA Comment Culture not ind Ur Microscopic Review Not Reportable Urine Culture Comments Culture not ind 02/03/18 02/03/18 02/03/18 06:49 06:49 06:49 WBC 5.2 RBC 3.91 L Hgb 11.2 L Hct 33.9 L MCV 86.7 MCH 28.7 MCHC 33.1 RDW 14.8 Plt Count 130 L MPV 12.3 H Neut % (Auto) 62.6 Lymph % (Auto) 23.9 [place] % (Auto) 12.0 H Eos % (Auto) 1.0 Baso % (Auto) 0.5 Neut # (Auto) 3.2 Lymph # (Auto) 1.2 [place] # (Auto) 0.6 Eos # (Auto) 0.1 Baso # (Auto) 0.0 WBC Differential . Differential Comment Auto diff final PT INR APTT Sodium 137 Potassium 4.3 Chloride 106 Carbon Dioxide 20.3 L Anion Gap 11 BUN 66 H Creatinine 4.79 H Estimated GFR 12 L POC Glucose Random Glucose 109 H Calcium 7.7 L D Total Bilirubin 3.1 H Direct Bilirubin Indirect Bilirubin AST 166 H ALT 381 H Alkaline Phosphatase 719 H Ammonia Total Creatine Kinase Total Protein 5.7 L D Albumin 2.7 L D Amylase Lipase TSH Free T4 1.18 Urine Color Urine Clarity Urine pH Ur Specific [place] Urine Protein Urine Glucose (UA) Urine Ketones Urine Occult Blood Urine Nitrate Urine Bilirubin Urine Urobilinogen Ur Leukocyte Esterase Urine RBC Urine WBC Urine Bacteria Urine Mucus Micro UA Comment Ur Microscopic Review Urine Culture Comments 02/03/18 02/03/18 02/03/18 06:49 08:22 10:15 WBC RBC Hgb Hct MCV MCH MCHC RDW Plt Count MPV Neut % (Auto) Lymph % (Auto) [place] % (Auto) Eos % (Auto) Baso % (Auto) Neut # (Auto) Lymph # (Auto) [place] # (Auto) Eos # (Auto) Baso # (Auto) WBC Differential Differential Comment PT INR APTT Sodium Potassium Chloride Carbon Dioxide Anion Gap BUN Creatinine Estimated GFR POC Glucose 104 Random Glucose Calcium Total Bilirubin Direct Bilirubin Indirect Bilirubin AST ALT Alkaline Phosphatase Am[place]ia 21 Total Creatine Kinase Total Protein Albumin Amylase Lipase TSH 1.760 Free T4 Urine Color Urine Clarity Urine pH Ur Specific [place] Urine Protein Urine Glucose (UA) Urine Ketones Urine Occult Blood Urine Nitrate Urine Bilirubin Urine Urobilinogen Ur Leukocyte Esterase Urine RBC Urine WBC Urine Bacteria Urine Mucus Micro UA Comment Ur Microscopic Review Urine Culture Comments 02/03/18 10:15 WBC RBC Hgb Hct MCV MCH MCHC RDW Plt Count MPV Neut % (Auto) Lymph % (Auto) [place] % (Auto) Eos % (Auto) Baso % (Auto) Neut # (Auto) Lymph # (Auto) [place] # (Auto) Eos # (Auto) Baso # (Auto) WBC Differential Differential Comment PT INR APTT Sodium Potassium Chloride Carbon Dioxide Anion Gap BUN Creatinine Estimated GFR POC Glucose Random Glucose Calcium Total Bilirubin Direct Bilirubin Indirect Bilirubin AST ALT Alkaline Phosphatase [place] Total Creatine Kinase Total Protein Albumin Amylase 50 Lipase 532 H TSH Free T4 Urine Color Urine Clarity Urine pH Ur Specific [place] Urine Protein Urine Glucose (UA) Urine Ketones Urine Occult Blood Urine Nitrate Urine Bilirubin Urine Urobilinogen Ur Leukocyte Esterase Urine RBC Urine WBC Urine Bacteria Urine Mucus Micro UA Comment Ur Microscopic Review Urine Culture Comments - Imaging Impressions Abdomen/Pelvis CT 02/02/18 17:36 CONCLUSION: 1. Negative noncontrast CT abdomen/pelvis. <Paulino Schulte - Last Filed: 02/03/18 15:15> Assessment and Plan - Plan Assessment: - Elevated LFTs AST-166 ALT-381 Alk phos-719 T bili-3.1 Lipase-711 CT abdomen and pelvis W PO contrast (done outpt) --> Markedly dilated common bile duct and a moderate dilatation of the pancreatic duct with enlarged pancreatic head suspicious for a mass. Complaining of weight loss for the past year, significant increase in weight loss since November. Reports nausea since recently being started on Metformin, newly diagnosed DM in November, follows expediter service order at [facility] in [place]. Denies emesis, abdominal pain. EGD and colonoscopy 10 years ago- thinks both exams were normal Denies family history of cancer. Quit drinking alcohol in December, prior to that was only a social drinker. Quit smoking in 1981. Pt states he is waiting to be discharged so that he can drive up to [facility] where he sees his expediter service order and be admitted there. He does not want any work up by our service at this time. 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 Recommended MRCP (Can not be done with contrast due to impaired renal function) and tumor markers. Discussed that based on MRCP findings may need ERCP. Pt does not want these done at this facility. Discussed this with Dr. Ding who requested I order MRCP and tumor markers and that pt may refuse if he wishes. Plan: MRCP WO contrast (impaired renal function, unable to do IV contrast) CA 19-9 CEA Monitor LFTs IV fluids Pain control Anti-emetics Hepatitis panel As noted above, pt wants to go to [facility] in [place], if he decides to stay our service would be happy to participate in his management Will follow Pt has been seen and examined by myself and Dr. Schulte and this note is written on his behalf <Madeline Chavez - Last Filed: 02/03/18 10:07> - Plan Seen and examined with MANAGER CHILD, findings concerning for pancreatic malignancy and further chavis recommended to pt. He is adamant that he wants to be discharged and he wants to go to [facility] for further treatment. He is signing out AMA. He is advised to go to a hospital in [place] today if he sign out AMA. <Paulino Schulte - Last Filed: 02/03/18 15:15>
[2018-02-03 10:50] LABS: Amylase 50 U/L (25-115); Lipase 532 U/L (73-393)
--- NOTE | 2018-02-03 11:09 | P.AMA ---
AMA Note - AMA Note Recommended Treatment Course: 72-year-old male with a history of CAD with history of stenting, diabetes starting on metformin started about 1 month ago, a one-month history of intentional 30 pound weight loss, together with crampy intermittent lower abdominal pain, nausea and decreased appetite. Patient went to see an juvenile court liaison injectable due to elevated LFTs, had labs and imaging performed today; patient was called by juvenile court liaison this afternoon to inform him that creatinine above 5.0 on labs drawn this am, as well as a GI mass found on imaging (patient recalls being told this was a pancreatic mass). Patient does note dark urine over the past few days. Denies any chest pain, shortness of breath. He has had low blood pressures with systolics in the 80s, and had his lisinopril discontinued on Wednesday. follow up with gi and follow up in [place], [place] where the patient left AMA TO GO TO [place], [place] There is some concern about a Kl[place]'s tumor-if patient instead would have had tumor markers and MRCP of the area GI had been consulted already Patient decided to leave AGAINST MEDICAL ADVICE so that he could go to [place] for evaluation up at the hospital his juvenile court liaison wanted him to go to [place] Statement: Patient Mohit Hickey has decided to leave the hospital against medical advice. This patient has the capacity to refuse care and understands the risks of leaving, including permanent disability and/or , and has had an opportunity to ask questions about his/her condition. The patient has been informed that he/she may return for care at any time, and follow up has been arranged/advised. - AMA Note Discharge Disposition: Against Medical Advice Patient Condition on Discharge: Fair
--- NOTE | 2018-02-03 11:11 | P.DS ---
Date of admission: 02/02/18 21:15 Primary care physician: Parul Mann MD Attending physician on discharge: Andrey Ding Anticipated date of discharge: 02/03/18 Brief History from admission: 72-year-old male with a history of CAD with history of stenting, diabetes starting on metformin started about 1 month ago, a one-month history of intentional 30 pound weight loss, together with crampy intermittent lower abdominal pain, nausea and decreased appetite. Patient went to see an communication studies professor injectable due to elevated LFTs, had labs and imaging performed today; patient was called by communication studies professor this afternoon to inform him that creatinine above 5.0 on labs drawn this am, as well as a GI mass found on imaging (patient recalls being told this was a pancreatic mass). Patient does note dark urine over the past few days. Denies any chest pain, shortness of breath. He has had low blood pressures with systolics in the 80s, and had his lisinopril discontinued on Wednesday. Patient update on day of discharge: 72-year-old male with a history of CAD with history of stenting, diabetes starting on metformin started about 1 month ago, a one-month history of intentional 30 pound weight loss, together with crampy intermittent lower abdominal pain, nausea and decreased appetite. Patient went to see an communication studies professor injectable due to elevated LFTs, had labs and imaging performed today; patient was called by communication studies professor this afternoon to inform him that creatinine above 5.0 on labs drawn this am, as well as a GI mass found on imaging (patient recalls being told this was a pancreatic mass). Patient does note dark urine over the past few days. Denies any chest pain, shortness of breath. He has had low blood pressures with systolics in the 80s, and had his lisinopril discontinued on Wednesday. 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-if patient instead would have had tumor markers and MRCP of the area GI had been consulted already Patient decided to leave AGAINST MEDICAL ADVICE so that he could go to [place] for evaluation up at the hospital his communication studies professor wanted him to go to DS: Diagnosis - Discharge Diagnosis (1) Abdominal mass Status: Acute (2) Renal failure Status: Acute DS: Summary Hospital Course: 72-year-old male with a history of CAD with history of stenting, diabetes starting on metformin started about 1 month ago, a one-month history of intentional 30 pound weight loss, together with crampy intermittent lower abdominal pain, nausea and decreased appetite. Patient went to see an communication studies professor injectable due to elevated LFTs, had labs and imaging performed today; patient was called by communication studies professor this afternoon to inform him that creatinine above 5.0 on labs drawn this am, as well as a GI mass found on imaging (patient recalls being told this was a pancreatic mass). Patient does note dark urine over the past few days. Denies any chest pain, shortness of breath. He has had low blood pressures with systolics in the 80s, and had his lisinopril discontinued on Wednesday. 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-if patient instead would have had tumor markers and MRCP of the area GI had been consulted already Patient decided to leave AGAINST MEDICAL ADVICE so that he could go to [place] for evaluation up at the hospital his communication studies professor wanted him to go to - Time Spent with Patient Total time spent providing and/or coordinating discharge services: Less than 30 minutes - Quality: VTE Deep Vein Thrombosis/Pulmonary Embolism Present on Admission: No Exam Vital signs: Vital Signs 02/02/18 15:52 02/02/18 17:21 02/02/18 20:26 Temperature 97.3 F L Pulse Rate 60 64 78 Respiratory Rate 16 18 Blood Pressure 114/59 L 151/70 H Pulse Oximetry 95 98 02/03/18 00:00 02/03/18 00:07 02/03/18 03:46 Temperature 98.0 F Pulse Rate 48 L 57 L 52 L Respiratory Rate 18 Blood Pressure 122/61 Pulse Oximetry 98 02/03/18 04:00 02/03/18 08:00 Temperature 98.0 F 97.5 F L Pulse Rate 68 56 L Respiratory Rate 18 17 Blood Pressure 99/54 L 133/63 Pulse Oximetry 96 95 Intake & Output 02/02/18 02/03/18 02/03/18 18:59 06:59 18:59 Intake Total 1000 / 1000 1000 / 1000 Balance 1000 / 1000 1000 / 1000 Weight 89.811 kg 89.6 kg Intake: IV 1000 / 1000 1000 / 1000 NS Inj 1,000 ML @ Wide Open IV. 1000 / 1000 1000 / 1000 SIG BOLUS ONE Rx#:[id number] Other: Date of Last Bowel Movement 02/02/18 Weight On Admission 89.8 kg Results Procedures completed during hospitalization: NONE LEFT AMA Labs on day of discharge: Labs from last 24 hours 02/03/18 02/03/18 02/03/18 10:15 10:15 08:22 WBC RBC Hgb Hct MCV MCH MCHC RDW Plt Count MPV Neut % (Auto) Lymph % (Auto) Ida % (Auto) Eos % (Auto) Baso % (Auto) Neut # (Auto) Lymph # (Auto) Ida # (Auto) Eos # (Auto) Baso # (Auto) WBC Differential Differential Comment PT INR APTT Sodium Potassium Chloride Carbon Dioxide Anion Gap BUN Creatinine Estimated GFR POC Glucose 104 Random Glucose Hemoglobin A1c Calcium Total Bilirubin Direct Bilirubin Indirect Bilirubin AST ALT Alkaline Phosphatase Ammonia 21 Total Creatine Kinase Total Protein Albumin Amylase 50 Lipase 532 H TSH Free T4 Urine Color Urine Clarity Urine pH Ur Specific [place] Urine Protein Urine Glucose (UA) Urine Ketones Urine Occult Blood Urine Nitrate Urine Bilirubin Urine Urobilinogen Ur Leukocyte Esterase Urine RBC Urine WBC Urine Bacteria Urine Mucus Micro UA Comment Ur Microscopic Review Urine Culture Comments 02/03/18 02/03/18 02/03/18 06:49 06:49 06:49 WBC RBC Hgb Hct MCV MCH MCHC RDW Plt Count MPV Neut % (Auto) Lymph % (Auto) Ida % (Auto) Eos % (Auto) Baso % (Auto) Neut # (Auto) Lymph # (Auto) Ida # (Auto) Eos # (Auto) Baso # (Auto) WBC Differential Differential Comment PT INR APTT Sodium 137 Potassium 4.3 Chloride 106 Carbon Dioxide 20.3 L Anion Gap 11 BUN 66 H Creatinine 4.79 H Estimated GFR 12 L POC Glucose Random Glucose 109 H Hemoglobin A1c Calcium 7.7 L D Total Bilirubin 3.1 H Direct Bilirubin Indirect Bilirubin AST 166 H ALT 381 H Alkaline Phosphatase 719 H Ammonia Total Creatine Kinase Total Protein 5.7 L D Albumin 2.7 L D Amylase Lipase TSH 1.760 Free T4 1.18 Urine Color Urine Clarity Urine pH Ur Specific [place] Urine Protein Urine Glucose (UA) Urine Ketones Urine Occult Blood Urine Nitrate Urine Bilirubin Urine Urobilinogen Ur Leukocyte Esterase Urine RBC Urine WBC Urine Bacteria Urine Mucus Micro UA Comment Ur Microscopic Review Urine Culture Comments 02/03/18 02/02/18 02/02/18 06:49 17:02 17:02 WBC 5.2 RBC 3.91 L Hgb 11.2 L Hct 33.9 L MCV 86.7 MCH 28.7 MCHC 33.1 RDW 14.8 Plt Count 130 L MPV 12.3 H Neut % (Auto) 62.6 Lymph % (Auto) 23.9 Ida % (Auto) 12.0 H Eos % (Auto) 1.0 Baso % (Auto) 0.5 Neut # (Auto) 3.2 Lymph # (Auto) 1.2 Ida # (Auto) 0.6 Eos # (Auto) 0.1 Baso # (Auto) 0.0 WBC Differential . Differential Comment Auto diff final PT INR APTT Sodium Potassium Chloride Carbon Dioxide Anion Gap BUN Creatinine Estimated GFR POC Glucose Random Glucose Hemoglobin A1c Pending Calcium Total Bilirubin 2.5 H Direct Bilirubin 1.7 H Indirect Bilirubin 0.8 AST ALT Alkaline Phosphatase Ammonia Total Creatine Kinase Total Protein Albumin Amylase Lipase TSH Free T4 Urine Color Urine Clarity Urine pH Ur Specific [place] Urine Protein Urine Glucose (UA) Urine Ketones Urine Occult Blood Urine Nitrate Urine Bilirubin Urine Urobilinogen Ur Leukocyte Esterase Urine RBC Urine WBC Urine Bacteria Urine Mucus Micro UA Comment Ur Microscopic Review Urine Culture Comments 02/02/18 02/02/18 02/02/18 17:02 17:02 17:02 WBC RBC Hgb Hct MCV MCH MCHC RDW Plt Count MPV Neut % (Auto) Lymph % (Auto) Ida % (Auto) Eos % (Auto) Baso % (Auto) Neut # (Auto) Lymph # (Auto) Ida # (Auto) Eos # (Auto) Baso # (Auto) WBC Differential Differential Comment PT INR APTT Sodium 135 L Potassium 4.7 Chloride 99 Carbon Dioxide 22.8 Anion Gap 13 BUN 64 H Creatinine 5.05 H Estimated GFR 11 L POC Glucose Random Glucose 121 H Hemoglobin A1c Calcium 9.1 Total Bilirubin 2.5 H Direct Bilirubin Indirect Bilirubin AST 205 H ALT 511 H Alkaline Phosphatase 895 H Ammonia Total Creatine Kinase 39 Total Protein 7.0 Albumin 3.3 L Amylase Lipase 711 H TSH Free T4 Urine Color Yellow Urine Clarity Hazy H Urine pH 5.0 Ur Specific [place] 1.010 Urine Protein Negative Urine Glucose (UA) Negative Urine Ketones Trace H Urine Occult Blood Negative Urine Nitrate Negative Urine Bilirubin Negative Urine Urobilinogen 2.0 H Ur Leukocyte Esterase Negative Urine RBC 1 Urine WBC 2 Urine Bacteria Occasional H Urine Mucus Few H Micro UA Comment Culture not ind Ur Microscopic Review Not Reportable Urine Culture Comments Culture not ind 02/02/18 02/02/18 17:02 17:02 WBC 6.0 RBC 4.46 L Hgb 13.0 Hct 38.4 L MCV 86.1 MCH 29.1 MCHC 33.8 RDW 15.2 Plt Count 150 MPV 12.2 H Neut % (Auto) 62.3 Lymph % (Auto) 25.6 Ida % (Auto) 10.7 H Eos % (Auto) 0.7 Baso % (Auto) 0.7 Neut # (Auto) 3.8 Lymph # (Auto) 1.5 Ida # (Auto) 0.6 Eos # (Auto) 0.0 Baso # (Auto) 0.0 WBC Differential . Differential Comment Auto diff final PT 11.1 INR 1.1 APTT 24.3 Sodium Potassium Chloride Carbon Dioxide Anion Gap BUN Creatinine Estimated GFR POC Glucose Random Glucose Hemoglobin A1c Calcium Total Bilirubin Direct Bilirubin Indirect Bilirubin AST ALT Alkaline Phosphatase Ammonia Total Creatine Kinase Total Protein Albumin Amylase Lipase TSH Free T4 Urine Color Urine Clarity Urine pH Ur Specific [place] Urine Protein Urine Glucose (UA) Urine Ketones Urine Occult Blood Urine Nitrate Urine Bilirubin Urine Urobilinogen Ur Leukocyte Esterase Urine RBC Urine WBC Urine Bacteria Urine Mucus Micro UA Comment Ur Microscopic Review Urine Culture Comments - Impressions ITS Impressions Abdomen/Pelvis CT 02/02/18 17:36 CONCLUSION: 1. Negative noncontrast CT abdomen/pelvis. Discharge Plan - Discharge Disposition Patient Disposition: 07 Against Medical Advice - Discharge Condition Condition: Fair - Discharge Order Discharge Orders: AMA Discharge (Routine); Ordered 02/03/18 Ordered By: Andrey Ding Discharge Order (Routine); Ordered 02/03/18 Ordered By: Andrey Dnig - Discharge Details Anticipated Discharge Date: 02/03/18 Discharge Comment: LEFT AMA - Physicians Team Primary Care Provider: Parul Mann Attending Provider: Andrey Ding Other Providers: Emeka Vo MD ; Paulino Schulte MD
[2018-02-03 12:12] VITALS: PULSE 53
[2018-02-03 16:46] LABS: Hemoglobin A1c 7.6 % (4.3-6.0)
== END 2018-02-03 11:01 | disposition left against medical advice (07) ==
LOC: NEPE 15:46 → NEDA 21:15 → N06 22:47
PROVIDERS: ADMIT Hospitalist; ATTEND Hospitalist